=== PATIENT | female | born 1965 | race Caucasian/White ===

== ENCOUNTER 2017-10-13 09:17 | Emergency (ER) ==
[2017-10-13 09:26] VITALS: BP 142/96; TEMP 97.9; BMI 41.9
[2017-10-13] MEDS ORDERED: LIDOCAINE 1%-EPI 1:100,000 20 ML MDV ONE (11:26)
[2017-10-13] MEDS ORDERED: LIDOCAINE 1%-EPI 1:100,000 20 ML MDV INJ STA (11:49)
[2017-10-13] MEDS ORDERED: TETANUS DIPHTHERIA TOXOIDS IM ONE (11:53)
--- NOTE | 2017-10-13 11:55 | ED.PDOC ---
General ED Provider: Dr. TANNER PERRY Chief Complaint: Knee Pain/Injury Stated Complaint: States slipped and fell on ice earlier this morning injurying her Rt Knee. Sustained 2 cm horizonal lacertion to the patellar region of Rt knee. No other injuries sustained. Denies other injuries or health problems Time Seen by Physician: 11:10 Mode of Arrival: Walk-In Information Source: Patient Exam Limitations: No limitations Primary Care Provider: TRAVON GAONA Nursing and Triage Documentation Reviewed and Agree: Yes Reviewed sepsis parameters & appropriate labs ordered?: Yes System Inflammatory Response Syndrome: Not Applicable Sepsis Protocol: For patient's 13 years and over: Temp is 96.8 and below OR 101 and greater Pulse >90 BPM Resp >20/minute Acutely Altered Mental Status Are patient's symptoms suggestive of a new infection, such as: -Pneumonia -Skin, Soft Tissue -Endocarditis -UTI -Bone, Joint Infection -Implantable Device -Acute Abdominal Infection -Wound Infection -Meningitis -Blood Stream Catheter Infection -Unknown Trauma/Injury Complaint Exam - Trauma Complaint/Exam Location of Pain or Injury: Reports: LLE (Rt knee), Other Mechanism of Injury: Reports: Fall Onset/Duration: This AM Symptoms Are: Still present Timing of Treatment: Immediate Initial Severity: Mild Current Severity: Mild Character: Reports: Aching, Sharp Aggravating: Reports: Movement, Weight-bearing, Ambulation, Palpation Alleviating: Reports: Rest, Immobilization Associated Signs and Symptoms: Reports: Swelling. Denies: LOC, Confusion, Memory loss, Lethargy, Vomiting, Bleeding, Bruising Related History: Denies: Similar episode : No Penetrating Injury Risk Factors: Reports: None Related Surgical History: Reports: None Nexus Low Risk Criteria: No post-midline CS tender, No evidence of intoxicat. Compartment Syndrome Risk Factors: Absent: Pain, Paralysis, Pallor, Pulselessness, Paresthesias Trauma Findings: Absent: Pelvic tenderness Skin Findings: Present: Laceration Differential Diagnoses: Laceration Review of Systems - Review Of Systems Constitutional: Reports: No symptoms Eyes: Reports: No symptoms Ears, Nose, Mouth, Throat: Reports: No symptoms Respiratory: Reports: No symptoms Cardiac: Reports: No symptoms GI: Reports: No symptoms : Reports: No symptoms Musculoskeletal: Reports: No symptoms Skin: Reports: Other (laceration ) Neurological: Reports: No symptoms Endocrine: Reports: No symptoms Hematologic/Lymphatic: Reports: No symptoms All Other Systems: Reviewed and Negative Past Medical History - Past Medical History Previously Healthy: Yes Endocrine: Reports: None Cardiovascular: Reports: None Respiratory: Reports: None Hematological: Reports: None Gastrointestinal: Reports: None Genitourinary: Reports: None Neuro/Psych: Reports: Seizure Musculoskeletal: Reports: None Cancer: Reports: None Last Menstrual Period: one week ago - Surgical History General Surgical History: Reports: None - Family History Family History: Reports: None - Social History Smoking Status: Never smoker Hx Substance Use: No Alcohol Screening: None - Immunizations Tetanus Shot up to Date: Yes Physical Exam - Physical Exam Appearance: Obese Ill-appearing: None Pain Distress: None Eyes: [place], Conjunctiva clear ENT: Ears normal Neck: Supple Respiratory: Airway patent, Breath sounds clear Cardiovascular: RRR, Pulses normal GI/: Soft, Nontender, No masses Musculoskeletal: Normal strength (Rt Knee lacertion measuing 2.5 cm horizonal) Skin: Warm, Dry, Normal color Neurological: Sensation intact, Motor intact, Reflexes intact, Cranial nerves intact, Alert, Oriented Psychiatric: Affect appropriate, Mood appropriate Procedures - Laceration/Wound Repair Laceration Rt Knee Wound Description: Other (Horizonal and slightly curvelinear) Wound Length (cm): 2.5 cm Wound Depth: 1.5 -2 cm Wound Explored: Clean Wound Irrigated: Yes Wound Prep: Saline, Hibiclens, Betadine, Scrub Anesthesia: Lidocaine w/ Epi Wound Repaired With: Sutures Suture Size and Type: 3-0 Ethicon Number of Sutures: 4 Layer Closure?: No Critical Care Note - Critical Care Note Total Time (mins): 0 Course - Course Orders, Labs, Meds: Orders Category Date Time Status BREEZY [ED BREEZY WRAP] .ONCE EMERGENCY 10/13/17 11:52 Active ED WOUND CARE .ONCE EMERGENCY 10/13/17 11:52 Active Lidocaine 1%/Epinephrine [Lidocaine 1%-Epi 1:100,000 20 MEDS 10/13/17 11:26 Discontinued ml Mdv] 1 ml .ROUTE .STK-MED ONE Lidocaine 1%/Epinephrine [Lidocaine 1%-Epi 1:100,000 20 MEDS 10/13/17 11:49 Discontinued ml Mdv] 1 ml INJ ONCE STA Tetanus, Diphtheria Tox,Adult [Tetanus Diphtheria MEDS 10/13/17 11:53 Discontinued Toxoids] 0.5 ml IM .ONCE ONE KNEE, RIGHT 4 VIEWS Stat RADS 10/13/17 11:51 Completed Medications Discontinued Medications Generic Name Dose Route Start Last Admin Trade Name Reina PRN Reason Stop Dose Admin Lidocaine/Epinephrine 1 ml 10/13/17 11:49 10/13/17 12:43 Lidocaine 1%-Epi 1:100,000 20 Ml Mdv INJ 10/13/17 11:50 1 ml ONCE STA Administration Tetanus/Diphtheria Toxoids 0.5 ml 10/13/17 11:53 Tetanus Diphtheria Toxoids IM 10/13/17 11:54 .ONCE ONE Vital Signs: Temp Pulse Resp BP Pulse Ox 10/13/17 09:18 97.9 F 108 H 16 142/96 H 98 Departure - Departure Time of Disposition: 12:50 Disposition: HOME SELF-CARE Discharge Problem: Laceration of knee Instructions: Laceration (ED) Condition: Good Pt referred to PMD for follow-up: Yes (4-7 days) IPMP verified?: Yes Additional Instructions: Routine wound care- post laceration repair instruciotns given May take Ibuprofen 400 mg every 6 hours for pain control as needed Take Cephlexin See PCP in 5-7 days Allergies/Adverse Reactions: Allergies No Known Allergies Allergy (Verified 10/13/17 09:31) Home Medications: Ambulatory Orders Topiramate [Topamax] 50 mg PO ONCE 04/03/16 Cephalexin 500 mg PO BID 5 Days #10 capsule 10/13/17
--- NOTE | 2017-10-13 12:27 | DI ---
EXAM: Four view right knee COMPARISON: None HISTORY: Trauma and pain FINDINGS: There is no acute fracture or dislocation. Alignment is anatomic. Joint spaces are well p reserved. There is no significant degenerative change. There is air seen within the soft tissues over lying the patella. There is no evidence for patellar fracture. No unexpected radio-opaque foreign b odies. IMPRESSION: 1. No acute osseous abnormality. 2. Acute soft tissue injury as described.
[2017-10-13] MEDS ORDERED: BOOSTRIX IM ONE (12:49)
== END 2017-10-13 13:25 | disposition home or self-care (01) ==
LOC: ED 09:17
DX: S81.011A Laceration without foreign body, right knee, initial encounter (principal); W00.0XXA Fall on same level due to ice and snow, initial encounter
CPT/HCPCS: 90471; 90714; 90715; 99283